=== PATIENT | female | born 1960 | race African-American/Black ===

== ENCOUNTER → 2017-10-01 15:46 | Outpatient (CLI) | payer MEDICAID, SELFPAY ==
[2017-10-01 15:59] LABS: Basophils % 0.5 % (0.1-2.0); Eosinophils # 0.2 K/mm3 (0.0-0.4); Eosinophils % 3.5 % (0.1-12.0); Hemoglobin 10.1 g/dL (12.2-16.2); Lymphocytes % 42.6 K/mm3 (10-50); Mean Corpuscular HGB Conc 30.7 g/dL (31.8-35.4); Mean Platelet Volume 7.8 fl (7.4-10.4); Monocytes # 0.3 K/mm3 (0.1-1.0); Monocytes % 6.4 % (1.7-9.3); Neutrophils # 2.2 K/mm3 (1.8-7.8); Neutrophils % 46.9 % (37.0-80.0); Platelet Count 306 K/mm3 (142-424); Red Blood Count 3.76 M/mm3 (4.20-5.40); Red Cell Distribution Width 13.2 % (11.5-17.5); White Blood Count 4.6 K/mm3 (4.8-10.8)
[2017-10-01 16:54] LABS: Alanine Aminotransferase 19 U/L (12-78); Albumin Level 3.7 gm/dL (3.4-5.0); Albumin/Globulin Ratio 1.2 (1.1-1.8); Alkaline Phosphatase 131 U/L (46-116); Anion Gap 13.8 mEq/L (5-15); Aspartate Amino Transferase 14 U/L (15-37); Bilirubin,Total 0.2 mg/dL (0.2-1.0); Blood Urea Nitrogen 41 mg/dL (7-18); Calcium 9.2 mg/dL (8.5-10.1); Carbon Dioxide 24 mmol/L (21.0-32.0); Chloride 112 mmol/L (98-107); Creatinine,Serum 1.98 mg/dL (0.55-1.02); Estimated Glomerular Filt Rate 26 ml/min (>60); GFR (African American) 31 ML/MIN (>60); Glucose 94 mg/dL (74-106); Potassium 4.8 mmoL/L (3.5-5.1); Sodium 145 mmol/L (136-145); Total Protein,Serum 6.7 gm/dL (6.4-8.2)
== END ==
PROVIDERS: Visit Provider Internal Medicine Adolescent Medicine
DX: N17.9 Acute kidney failure, unspecified (principal); I10 Essential (primary) hypertension
CPT/HCPCS: 36415; 80053; 85025

== ENCOUNTER 2019-05-07 10:16 | Observation (INO) ==
[2019-05-07 11:34] LABS: Basophils % 0.7 % (0.1-2.0); Eosinophils # 0.2 K/mm3 (0.0-0.4); Eosinophils % 2.8 % (0.1-12.0); Hematocrit 40.9 % (37.0-47.0); Hemoglobin 12.8 g/dL (12.2-16.2); Lymphocytes % 38.1 % (10-50); Mean Corpuscular HGB Conc 31.2 g/dL (31.8-35.4); Mean Corpuscular Volume 89.4 fl (81-99); Mean Platelet Volume 7.5 fl (7.4-10.4); Monocytes # 0.3 K/mm3 (0.1-1.0); Neutrophils # 2.8 K/mm3 (1.8-7.8); Neutrophils % 52.4 % (37.0-80.0); Platelet Count 312 K/mm3 (142-424); Red Blood Count 4.57 M/mm3 (4.20-5.40); Red Cell Distribution Width 13.1 % (11.5-17.5); White Blood Count 5.3 K/mm3 (4.8-10.8)
[2019-05-07 11:49] LABS: Albumin Level 3.8 g/dL (3.4-5.0); Anion Gap 11.3 mEq/L (5-15); Bilirubin,Total 0.4 mg/dL (0.2-1.0); Calcium 9.4 mg/dL (8.5-10.1); Total Protein,Serum 7.8 g/dL (6.4-8.2)
--- NOTE | 2019-05-07 13:24 | History & Physical Report ---
*Admission Date: 05/07/19 *Chief complaint: Hypertensive Emergency, left shoulder pain *History of present illness: Ms. Lozano is a pleasant -[place] female who presented to clinic today for medication check. She has not been seen in our office in over 10 months. She presented due to needing refills for her blood pressure medications and routine physical. Additionally she complained of some left shoulder and upper arm pain that has been waxing and waning for the past several weeks. On initial assessment she was noted to in no distress however her blood pressure was 210/105. After the patient had rested comfortably in the exam room for approximately 20 minutes, I rechecked in both upper extremities her blood pressure manually finding consistent blood pressures between 210 and 220 systolic and 100-110 diastolic on each check. 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 But did complain of shoulder pain at the time of assessment in clinic. I expressed my extreme concern for her severely elevated blood pressure even in the setting of her having taken her morning meds more than an hour before coming to clinic. She was directly admitted for further work-up and management of hypertensive emergency. EKG obtained showing LVH but no T wave inversions or ST elevations, otherwise sinus rhythm. Troponin obtained that was negative on initial assessment, otherwise initial labs positive for elevated creatinine. [facility] History I have reviewed the patient's past medical history: Yes Medical History: Reports:: Hyperlipidemia, Hypertension Denies:: Cancer, Diabetes Mellitus Type 1, Diabetes Mellitus Type 2, MRSA *Have you ever received a pneumonia vaccine?: Yes *Have you received a flu vaccine this season?: No Other Surgeries: Yes: Other (cycst removal) Amputation: No Fractures: No - *Social History Smoking Status: Current every day smoker Tobacco Type: cigarettes # Packs/Day (cigarettes): 1 Alcohol Intake: never *Occupational Status:: employed *Travel in the last 8 weeks: None Family Hx:: Cancer, Diabetes, Heart Attack, Hyperlipidemia, Hypertension, Stroke, Alcoholism Review of Systems - Review of Systems Review of systems:: pertinent systems reviewed and negative unless documented below (14 point review of systems performed, pertinent positives and negatives as per HPI) Meds Home Medications Medication Instructions Recorded Confirmed Type NIFEdipine [Nifedipine ER] 90 mg PO DAILY 02/15/20 02/15/20 History carvediloL [Carvedilol 25mg Tab] 12.5 mg PO DAILY 05/07/19 05/07/19 History Allergies Allergy/AdvReac Type Severity Reaction Status Date / Time No Known Allergies Allergy Verified 09/03/17 20:59 Exam Vital signs and Labs for Last 24 Hours: Temp Pulse Resp BP Pulse Ox 97.7 F 62 16 162/81 H 100 05/07/19 10:52 05/07/19 13:15 05/07/19 11:15 05/07/19 13:15 05/07/19 12:45 Laboratory Results - last 24 hr 05/07/19 11:00: WBC 5.3, RBC 4.57, Hgb 12.8, Hct 40.9, MCV 89.4, MCH 27.9, MCHC 31.2 L, RDW 13.1, Plt Count 312, MPV 7.5, Neut % (Auto) 52.4, Lymph % (Auto) 38.1, [place] % (Auto) 6.0, Eos % (Auto) 2.8, Baso % (Auto) 0.7, Neut # (Auto) 2.8, Lymph # (Auto) 2.0, [place] # (Auto) 0.3, Eos # (Auto) 0.2, Baso # (Auto) 0.0 05/07/19 11:00: Sodium 143, Potassium 4.3, Chloride 107, Carbon Dioxide 29, Anion Gap 11.3, BUN 25 H, Creatinine 1.32 H, Estimated Creat Clear 51, Estimated GFR 41 L, Est GFR ( Amer) 50 L, Glucose 82, Calcium 9.4, Magnesium 2.0, Total Bilirubin 0.4, AST 14 L, ALT 17, Alkaline Phosphatase 184 H, Total Protein 7.8, Albumin 3.8, Globulin 4.0 H, Albumin/Globulin Ratio 1.0 L, Triglycerides 62, Cholesterol 237 H, LDL Cholesterol 147 H, VLDL Cholesterol 12, HDL Cholesterol 78, Cholesterol/HDL Ratio 3.0 05/07/19 11:00: Troponin I < 0.02 I & O for Last 24 hours: Intake & Output 05/04/19 05/05/19 05/06/19 05/07/19 23:59 23:59 23:59 23:59 Weight 71.894 kg - Constitutional no acute distress, cooperative - *Routine HEENT Exam Head: Present: normocephalic Eye: Present: EOMI, PERRL ENT: Present: mucous membranes moist - *Routine Neck Exam Present: supple. Absent: lymphadenopathy - *Routine Respiratory Exam Present: CTA bilaterally - *Routine Cardiovascular Exam Present: RRR, Normal S1, Normal S2. Absent: murmur - *Routine Abdominal Exam Present: soft, normoactive bowel sounds. Absent: tenderness - *Routine Extremities Exam Present: edema (Trace bilateral lower extremity edema in shins). Absent: cyanosis, clubbing Comments: Mild tenderness in bilateral upper trapezius - *Routine Skin Exam Present: warm. Absent: rash - *Routine Neurological Exam Present: alert, oriented X3 Assessment and Plan (1) BEVERLY (acute kidney injury) Current visit: Yes Status: Acute Category: Medical Code(s): N17.9 - Acute kidney failure, unspecified (2) Hypertensive emergency Current visit: Yes Status: Acute Category: Medical Code(s): I16.1 - Hypertensive emergency (3) Left arm pain Current visit: Yes Status: Acute Category: Medical Code(s): M79.602 - Pain in left arm (4) Hyperlipidemia Current visit: Yes Status: Acute Category: Medical Code(s): E78.5 - Hyperlipidemia, unspecified - Assessment and plan all Dx Assessment and Plan for all problems:: Ms. Lozano is a 59-year-old -[place] female who presents with hypertensive emergency from clinic. EKG normal sinus rhythm with concern for LVH, otherwise normal with no ST changes. Troponins negative. Labs remarkable for elevated cholesterol and creatinine concerning for BEVERLY. Initiated on nicardipine drip with initial goal titration to less than 160 systolic. Resumed home oral medication regimen with initiation of nighttime dose of carvedilol. Overnight we will continue to titrate drip pending blood pressure consistently being below 140 systolic. Patient tolerating cardiac diet. Left arm pain initially seen in clinic has more or less resolved per her report with improvement in her blood pressure. We will continue to monitor on telemetry and adjust oral regimen pending improvement in ability to get off of nicardipine drip. Patient continues to require close monitoring and inpatient management. Patient is a full code. Condition guarded, prognosis good.
[2019-05-08 05:53] LABS: Basophils % 0.5 % (0.1-2.0); Eosinophils # 0.3 K/mm3 (0.0-0.4); Eosinophils % 4.6 % (0.1-12.0); Hematocrit 37.9 % (37.0-47.0); Hemoglobin 12.1 g/dL (12.2-16.2); Lymphocytes % 37.4 % (10-50); Mean Corpuscular HGB Conc 31.9 g/dL (31.8-35.4); Mean Corpuscular Volume 88.3 fl (81-99); Mean Platelet Volume 7.3 fl (7.4-10.4); Monocytes # 0.4 K/mm3 (0.1-1.0); Monocytes % 6.6 % (1.7-9.3); Neutrophils # 2.7 K/mm3 (1.8-7.8); Platelet Count 286 K/mm3 (142-424); Red Blood Count 4.29 M/mm3 (4.20-5.40); White Blood Count 5.3 K/mm3 (4.8-10.8)
[2019-05-08 06:03] LABS: Albumin Level 3.4 g/dL (3.4-5.0); Anion Gap 12.4 mEq/L (5-15); Bilirubin,Total 0.3 mg/dL (0.2-1.0); Calcium 9.3 mg/dL (8.5-10.1); Total Protein,Serum 6.9 g/dL (6.4-8.2)
[2019-05-08 06:04] LABS: Globulin 3.5 gm/dl (1.3-3.2)
--- NOTE | 2019-05-08 10:23 | Pharmacy Consult Notes ---
[facility] Pharmacy VTE Monitoring - Patient Demographics Admission date: 05/08/19 Report Date: 05/08/19 Time: 10:17 Allergies/Adverse Reactions: Patient Allergies No Known Allergies Allergy (Verified 09/03/17 20:59) Height: 1.57 m Weight: 71.894 kg Patient Problems: Current Active Problems BEVERLY (acute kidney injury) (Acute) Hypertensive emergency (Acute) Left arm pain (Acute) Hyperlipidemia (Acute) - VTE Risk Labs: VTE Related Lab Results Hgb 12.1 g/dL (12.2-16.2) L 05/08/19 05:40 Hct 37.9 % (37.0-47.0) 05/08/19 05:40 Plt Count 286 K/mm3 (142-424) 05/08/19 05:40 BUN 32 mg/dL (7-18) H D 05/08/19 05:40 Creatinine 1.32 mg/dL (0.55-1.02) H 05/08/19 05:40 Estimated Creat Clear 51 mL/min (50-200) 05/08/19 05:40 VTE Score: 3 VTE Risk Level: Low Risk - Prophylaxis Types of VTE Prophylaxis: TEDS Knee High (MIRANDA HOSE ORDER PLACED)
--- NOTE | 2019-05-08 12:46 | Discharge Summary ---
General - General Admission date:: 05/07/19 Discharge date: 05/08/19 HPI HPI: Ms. Lozano is a pleasant -[place] female who presented to clinic today for medication check. She has not been seen in our office in over 10 months. She presented due to needing refills for her blood pressure medications and routine physical. Additionally she complained of some left shoulder and upper arm pain that has been waxing and waning for the past several weeks. On initial assessment she was noted to in no distress however her blood pressure was 210/105. After the patient had rested comfortably in the exam room for approximately 20 minutes, I rechecked in both upper extremities her blood pressure manually finding consistent blood pressures between 210 and 220 systolic and 100-110 diastolic on each check. 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 But did complain of shoulder pain at the time of assessment in clinic. I expressed my extreme concern for her severely elevated blood pressure even in the setting of her having taken her morning meds more than an hour before coming to clinic. She was directly admitted for further work-up and management of hypertensive emergency. EKG obtained showing LVH but no T wave inversions or ST elevations, otherwise sinus rhythm. Troponin obtained that was negative on initial assessment, otherwise initial labs positive for elevated creatinine. Hospital Course Hospital Course: Admitted for hypertensive urgency, initiated on nicardipine drip with improvement in blood pressure. Transition to oral regimen with good control and tolerance of oral medications. Troponins were trended with no elevation, EKG with some left ventricular hypertrophy but no acute ST abnormalities or signs of conduction abnormalities indicative of ischemia. Discussed further management of her suspected anginal symptoms in the outpatient setting. We will have close follow-up with referral to cardiology for further assessment and testing including stress echo. Tolerating oral medications without side effects. Denies chest pain, back pain, shortness of breath, nausea, vomiting, diarrhea, confusion, headache. Medically stable for discharge home. Objective Vital signs: Temp Pulse Resp BP Pulse Ox 97.9 F 60 18 123/67 99 05/08/19 08:00 05/08/19 12:00 05/08/19 10:00 05/08/19 12:00 05/08/19 10:00 Narrative: - Constitutional no acute distress, cooperative - *Routine HEENT Exam Head: Present: normocephalic Eye: Present: EOMI, PERRL ENT: Present: mucous membranes moist - *Routine Neck Exam Present: supple. Absent: lymphadenopathy - *Routine Respiratory Exam Present: CTA bilaterally - *Routine Cardiovascular Exam Present: RRR, Normal S1, Normal S2. Absent: murmur - *Routine Abdominal Exam Present: soft, normoactive bowel sounds. Absent: tenderness - *Routine Extremities Exam Present: edema (Trace bilateral lower extremity edema in shins). Absent: cyanosis, clubbing Comments: Mild persistent tenderness in bilateral upper trapezius - *Routine Skin Exam Present: warm. Absent: rash - *Routine Neurological Exam Present: alert, oriented X3 Results Labs on day of discharge: Labs from last 24 hours 05/08/19 05/08/19 05/08/19 05:40 05:40 05:40 WBC 5.3 RBC 4.29 Hgb 12.1 L Hct 37.9 MCV 88.3 MCH 28.2 MCHC 31.9 RDW 13.0 Plt Count 286 MPV 7.3 L Neut % (Auto) 51.0 Lymph % (Auto) 37.4 [place] % (Auto) 6.6 Eos % (Auto) 4.6 Baso % (Auto) 0.5 Neut # (Auto) 2.7 Lymph # (Auto) 2.0 [place] # (Auto) 0.4 Eos # (Auto) 0.3 Baso # (Auto) 0.0 Sodium 143 Potassium 4.4 Chloride 108 H Carbon Dioxide 27 Anion Gap 12.4 BUN 32 H D Creatinine 1.32 H Estimated Creat Clear 51 Estimated GFR 41 L Est GFR ( Amer) 50 L Glucose 97 Hemoglobin A1c 5.4 Calcium 9.3 Magnesium 2.0 Total Bilirubin 0.3 AST 13 L ALT 16 Alkaline Phosphatase 161 H Troponin I Total Protein 6.9 Albumin 3.4 D Globulin 3.5 H Albumin/Globulin Ratio 1.0 L TSH 05/07/19 05/07/19 17:00 11:00 WBC RBC Hgb Hct MCV MCH MCHC RDW Plt Count MPV Neut % (Auto) Lymph % (Auto) [place] % (Auto) Eos % (Auto) Baso % (Auto) Neut # (Auto) Lymph # (Auto) [place] # (Auto) Eos # (Auto) Baso # (Auto) Sodium Potassium Chloride Carbon Dioxide Anion Gap BUN Creatinine Estimated Creat Clear Estimated GFR Est GFR ( Amer) Glucose Hemoglobin A1c Calcium Magnesium Total Bilirubin AST ALT Alkaline Phosphatase Troponin I < 0.02 Total Protein Albumin Globulin Albumin/Globulin Ratio TSH 1.71 DS: Diagnosis - Discharge Diagnosis (1) BEVERLY (acute kidney injury) Status: Acute (2) Hypertensive emergency Status: Acute (3) Left arm pain Status: Acute (4) Hyperlipidemia Status: Acute Discharge Plan - Patient Discharge Instructions ACTIVITY: Continue current activity DIET: continue same diet Patient Instructions: Recommendations to Help Prevent High Blood Pressure, High Triglycerides, DI for High Blood Pressure - Follow up Plan Follow up with: Latrell Solomon MD [Primary Care Provider] - Disposition: Home, Self-Longterm Medications: Home Medications Medication Instructions Recorded Confirmed Type Losartan/Hydrochlorothiazide 0.5 each PO DAILY 30 Days #15 tab 05/08/19 Rx [Losartan-Hctz 50-12.5 mg Tab] NIFEdipine [Nifedipine ER] 90 mg PO DAILY 30 Days #30 tab 05/08/19 Rx carvediloL [Carvedilol 25mg Tab] 12.5 mg PO BID 30 Days #30 tab 05/08/19 Rx Prescriptions/Medication Reconciliation: New Losartan/Hydrochlorothiazide [Losartan-Hctz 50-12.5 mg Tab] 0.5 each PO DAILY 30 Days #15 tab Continued carvediloL [Carvedilol 25mg Tab] 12.5 mg PO BID 30 Days #30 tab NIFEdipine [Nifedipine ER] 90 mg PO DAILY 30 Days #30 tab - Problem Reconciliation Problems Reviewed?: Yes
--- NOTE | 2019-05-09 18:06 | Electrocardiograph Report ---
APPROVED REPORT Exam: Resting ECG HR:51 bpm ECG Measurements Heart Rate 51 AXES MN 128 P 40 QRSd 88 QRS 27 QT 474 T84 QTc 436 <Conclusion> Sinus bradycardia Possible Left atrial enlargement Left ventricular hypertrophy with repolarization abnormality Abnormal ECG Electronically signed by : Patric Lozano, 05/09/2019 18:05:49
--- NOTE | 2019-05-09 18:23 | Electrocardiograph Report ---
APPROVED REPORT Exam: Resting ECG HR:51 bpm ECG Measurements Heart Rate 51 AXES LA 124 P 46 QRSd 90 QRS 20 QT 430 T-72 QTc 396 <Conclusion> Sinus bradycardia Left ventricular hypertrophy with repolarization abnormality Abnormal ECG Electronically signed by : Patric Lozano, 05/09/2019 18:23:28
== END 2019-05-08 17:00 | disposition home or self-care (01) ==
LOC: INTOOBSV 10:18 → 2ND 10:18
PROVIDERS: ADMIT Internal Medicine Adolescent Medicine; ATTEND Internal Medicine Adolescent Medicine
CPT/HCPCS: 36415; 80053; 80061; 83036; 83735; 84443; 84484; 85025; 93005; G0378

== ENCOUNTER 2022-03-01 21:36 | Emergency (ER) | payer OTHER, SELFPAY ==
[2022-03-01 21:38] VITALS: BP 132/72; PULSE 60; RESP 16; TEMP 36.9; O2SAT 99; BMI 26.3
[2022-03-01 22:00] VITALS: BP 132/72; PULSE 59; O2SAT 100
[2022-03-01 22:31] VITALS: BP 160/80; PULSE 59; O2SAT 100
--- NOTE | 2022-03-01 22:45 | PC.NURSE ---
Patient complained, that no one had seen her since she got here and requested to speak to housekeeping laundry worker. Patient called daughter on phone and daughter requesting to speak to housekeeping laundry worker. Patient complained to daughter that she had been here waiting for 3 hours and no one had seen her. Daughter stated that she was a nurse and worked ER and knew that was unacceptable. Explained to patient and daughter that a nurse triage her when she arrived. Patient continued to deny that anyone had been in room. Explained that at this time we was waiting for MD to see and the ER had been really busy with several very sick patient.
[2022-03-01 23:00] VITALS: BP 156/83; PULSE 58; O2SAT 100
[2022-03-01 23:30] VITALS: BP 157/81; PULSE 64; O2SAT 98
--- NOTE | 2022-03-02 00:10 | PC.NURSE ---
Patient and visitor walked out, stating that she was leaving because she should have already been seen. Apologized to patient.
[2022-03-02 00:27] VITALS: BP 0/0; PULSE 0; RESP 0; TEMP -17.7; TEMP 0; O2SAT 0
== END 2022-03-02 00:28 | disposition left against medical advice (07) ==
PROVIDERS: Emergency Provider Emergency Medicine; PCP Internal Medicine
DX: Z53.21 Procedure and treatment not carried out due to patient leaving prior to being seen by health care provider (principal)

== ENCOUNTER 2024-01-19 04:55 | Emergency (ER) | payer OTHER, SELFPAY ==
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
[2024-01-19 05:00] VITALS: BP 168/75; PULSE 62; O2SAT 100
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
[2024-01-19 05:01] VITALS: BP 198/88; PULSE 61; RESP 18; TEMP 36.6; O2SAT 100
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
--- NOTE | 2024-01-19 05:02 | ECG_ITS ---
APPROVED REPORT Exam: Resting ECG HR:51 bpm ECG Measurements Heart Rate 51 AXES DC 108 P 33 QRSd 92 QRS 41 QT 408 T 173 QTc 386 Conclusion Sinus bradycardia Electronically signed by : JESSICA LEACH, 01/19/2024 13:35:04
[2024-01-19] MEDS: ACETAMINOPHEN 500MG TAB 1000 MG PO (05:04)
[2024-01-19 05:09] LABS: Basophils % 0.7 % (0.1-2.0); Eosinophils # 0.1 K/mm3 (0.0-0.4); Eosinophils % 2.2 % (0.1-12.0); Hematocrit 34.1 % (37.0-47.0); Hemoglobin 11.3 g/dL (12.2-16.2); Lymphocytes % 41.1 % (10-50); Mean Corpuscular Hemoglobin 28.8 pg (27.0-31.2); Mean Corpuscular Volume 87.3 fl (81-99); Mean Platelet Volume 7.9 fl (7.4-10.4); Monocytes # 0.4 K/mm3 (0.1-1.0); Monocytes % 8.1 % (1.7-9.3); Neutrophils # 2.3 K/mm3 (1.8-7.8); Neutrophils % 47.9 % (37.0-80.0); Platelet Count 238 K/mm3 (142-424); Red Blood Count 3.91 M/mm3 (4.20-5.40); Red Cell Distribution Width 13.6 % (11.5-17.5); White Blood Count 4.8 K/mm3 (4.8-10.8)
[2024-01-19 05:12] VITALS: BP 198/88; PULSE 61; RESP 18; TEMP 36.6; O2SAT 100; BMI 27.1
[2024-01-19 05:13] LABS: Albumin Level 4.2 g/dl (3.5-5.0); Chloride 111 mmol/L (98-107); Sodium 140 mmol/L (136-145)
[2024-01-19 05:14] LABS: Potassium 4.2 mmoL/L (3.5-5.1)
[2024-01-19 05:16] LABS: Alanine Aminotransferase 13 U/L (12-78); Albumin/Globulin Ratio 1.4 (1.1-1.8); Alkaline Phosphatase 77 U/L (38-126); Anion Gap 13.2 mEq/L (5-15); Aspartate Amino Transferase 21 U/L (14-36); Bilirubin,Total 0.6 mg/dl (0.2-1.3); Blood Urea Nitrogen 47 mg/dl (7-17); Carbon Dioxide 20 mmol/L (22.0-30.0); Estimated Glomerular Filt Rate 21 ml/min (>60); GFR (African American) 26 ML/MIN (>60); Total Protein,Serum 7.2 g/dl (6.3-8.2)
[2024-01-19 05:17] LABS: Calcium 9.8 mg/dl (8.4-10.2); Glucose 125 mg/dl (74-100)
[2024-01-19 05:19] LABS: Creatinine Clearance Estimated 26 mL/min (50-200)
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
[2024-01-19 05:48] VITALS: BP 154/72; PULSE 55; O2SAT 100
[2024-01-19 05:58] LABS: HIV (1&2) Antibody Rapid NONREACTIVE (NONREACTIVE)
[2024-01-19 06:00] VITALS: BP 159/72; PULSE 54; O2SAT 100
[2024-01-19 06:17] VITALS: BP 144/72; PULSE 62; RESP 18; TEMP 36.6; O2SAT 98
[2024-01-20 08:25] LABS: HCV Ab Non Reactive (Non Reactive)
== END 2024-01-19 06:18 | disposition home or self-care (01) ==
PROVIDERS: Emergency Provider Emergency Medicine
DX: R07.9 Chest pain, unspecified (principal); M54.2 Cervicalgia; M79.605 Pain in left leg; V89.2XXA Person injured in unspecified motor-vehicle accident, traffic, initial encounter; Y93.89 Activity, other specified; Y92.9 Unspecified place or not applicable
CPT/HCPCS: 70450; 71045; 71250; 72125; 72128; 72131; 72170; 73590; 74176; 80053; 85025; 86803; 87389; 93005; 99291

== ENCOUNTER 2024-01-24 14:46 | Emergency (ER) | payer SELFPAY ==
[2024-01-24 14:48] VITALS: BP 168/88; PULSE 64; RESP 18; TEMP 36.7; O2SAT 100; BMI 26.2
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
[2024-01-24] MEDS: TET/DIPHTH/PERT-ADULT 0.5ML SYRINGE 0.5 ML IM (16:06)
[2024-01-24] MEDS: AEROCHAMBER/OPTIHALER 1 UNIT MC (16:06)
[2024-01-24] MEDS: ALBUTEROL-HFA 90MCG/PUFF INHALER 8GM 2 PUFF IH (16:06)
[2024-01-24 16:37] VITALS: BP 166/87; PULSE 60; RESP 18; TEMP 36.7; O2SAT 100
== END 2024-01-24 16:37 | disposition home or self-care (01) ==
PROVIDERS: Emergency Provider Student in an Organized Health Care Education/Training Program; PCP Internal Medicine Infectious Disease
DX: T24.132A Burn of first degree of left lower leg, initial encounter (principal); L03.116 Cellulitis of left lower limb
CPT/HCPCS: 90471; 90715; 99283